=== PATIENT | female | born 2000 | race Caucasian/White ===

== ENCOUNTER 2024-07-05 16:51 | Emergency (ER) | payer OTHER, SELFPAY ==
[2024-07-05 16:56] VITALS: BP 128/82
--- NOTE | 2024-07-05 17:36 | ED.GENMED ---
History of Present Illness
General
Chief Complaint: Abdominal Symptoms
Source: patient
Exam Limitations: none
Time Seen by Provider: 07/05/24 17:26
History of Present Illness
History of Present Illness:
24-year-old female complaining of upper abdominal pain recurrent vomiting some mild diarrhea. Patient gets reflux occasionally yesterday had some reflux and some mild hung over from the night before. She read online about taking baking soda and
feels she may have taken too much. About 30 minutes after taking the baking soda and water she had worsening symptoms nausea vomiting diarrhea upper abdominal cramps. She felt somewhat better this morning however symptoms recurred after trying to
eat. No back pain no chest pain or shortness of breath
Past History
Past History
ED Past Medical History: Psychiatric
ED Past Surgical History: Appendectomy and Tonsilectomy
Social History
Tobacco: Non-smoker
Alcohol: Occasional
Drug: None
Living: with family
Employment: Employed
Phy Exam
Physical Exam
Physical Exam:
GENERAL: Alert and oriented in no apparent distress
EYE: Orbits normal.
NECK: Supple
CARDIAC: Regular rate and rhythm without any obvious murmurs.
LUNGS: Clear breath sounds,normal
ABDOMEN: Soft, bowel sounds present. No distention. Mild reproducible epigastric tenderness. No rebound or guarding no mass or hernia
NEUROLOGICAL: Alert and oriented , grossly non-focal
SKIN: Warm and dry
PSYCH: Normal and appropriate interaction.
Course
Orders/Labs/Results
Orders:
Orders
07/05/24 17:34
IV Insert/Care/Rem.- Treatment PRN
0.9% Sodium Chloride 1000 ml [Nss] 1,000 ml IV BOLUS
Mag Hydrox/Al Hydrox/Simeth [Maalox] 30 ml Phenobarb/Hyoscy/Atropine/Scop [] 10 ml PO NOW
Ondansetron Injectable [Zofran] 4 mg IV NOW STA
07/05/24 17:35
Test Result ONCE
CR Obstruct Series W/pa Chest Urgent
Comment:
Reason For Exam: Upper abdominal pain/vomiting
US Abdomen Complete/Upper Urgent
Comment:
Reason For Exam: Upper abdominal pain
07/05/24 17:58
Phenobarb/Hyoscy/Atropine/Scop [] 10 ml .ROUTE .STK-MED ONE
07/05/24 17:59
Mag Hydrox/Al Hydrox/Simeth [Maalox] 30 ml .ROUTE .STK-MED ONE
07/05/24 18:15
Ondansetron Orally Disint [Zofran Odt (Orally Disintegrating)] 4 mg .ROUTE .STK-MED ONE
07/05/24 18:20
Ondansetron Orally Disint [Zofran Odt (Orally Disintegrating)] 4 mg PO NOW STA
07/05/24 18:21
HCG, Urine Qualitative Screen Urgent
Date Specimen was Collected: 07/05/24
Time Specimen was Collected: 18:03
07/05/24 19:30
Complete Blood Count/With Diff Urgent
Comprehensive Metabolic Panel Urgent
Lipase Urgent
07/05/24 21:04
Acetaminophen 1000MG/100Ml [Ofirmev] 1,000 mg in 100 ml IV ONCE
Acetaminophen IV Indication:: ED Narcotic History-ONCE
Ondansetron Injectable [Zofran] 4 mg IV NOW STA
Abnormal Lab Results
07/05/24
19:30
RBC 4.03 L 10^6/uL
(4.20-5.40)
Hct 36.0 L %
(37.0-47.0)
MCH 32.3 H pg
(27.0-31.0)
Absolute Neuts (auto) 8.2 H 10^3/uL
(1.4-6.5)
Absolute Monos (auto) 0.7 H 10^3/uL
(0.1-0.6)
Neutrophils % 77.3 H %
(42.2-75.2)
Lymphocytes % 15.3 L %
(20.5-51.1)
Carbon Dioxide 21 L mmol/L
(22-30)
07/05/24 19:30
07/05/24 19:30
Vital Signs
Initial and Last Documented VS:
Initial Vital Signs
Temp Pulse Resp BP Pulse Ox
98.4 F 89 18 128/82 97
07/05/24 16:56 07/05/24 16:56 07/05/24 16:56 07/05/24 16:56 07/05/24 16:56
Last Documented Vital Signs
Temp Pulse Resp BP Pulse Ox
97.9 F 61 16 103/71 98
07/05/24 21:29 07/05/24 21:29 07/05/24 21:29 07/05/24 21:29 07/05/24 21:29
MDM/Problems Addressed
Differential Diagnosis Includes:
Differential would include gastritis irritation from the baking soda, biliary colic. Clinically not obstructed. Workup in progress including labs ultrasound and x-rays. Symptomatic treatment with fluids Zofran and GI cocktail.
*Radiology
Radiology exam reviewed: radiology read reviewed (Negative obstruction series. Mild hepatomegaly on ultrasound otherwise unremarkable)
*Pulse Oximetry
Patient hypoxic: no
*Critical Care Note
Total Time (30-74mins, 75-104mins- exclusive of procedures): Not Applicable
Update Note
Update Note:
Patient feeling much better. Medically stable. Discharged to follow-up
ED Attending Note
-
Portions of this chart may have been created with voice recognition software.� Occasional wrong word or��sound alike� substitutions may have occurred due to the inherent limitations of voice recognition software.
Discharge Plan
Departure
Patient Disposition: Home (Routine Discharge)
Date of Disposition: 07/05/24
Time of Disposition: 22:25
Patient with high blood pressure during this ER visit?: No
Discharge Problem:
Abdominal pain/vomiting, History of GERD
Instructions: Nausea and Vomiting, Adult (DC), Abdominal Pain
Referrals:
Trenton Ji MD [Family Provider] - Follow up in 2-3 days
Activity Restrictions/Additional Instructions:
Take a Pepcid a day for the next week
Interventions
Interventions:
*Risk Screen - Suicide Last Done: 07/05/24 17:00
*General Assessment Last Done: 07/05/24 17:00
*Neglect/Abuse Screening Last Done: 07/05/24 17:00
ED- Fall Risk Assessment Last Done: 07/05/24 18:00
*ED COVID-19 Vaccine History Last Done: 07/05/24 17:00
EH-Lfmtpn-Asmxoarcuc Assessment Last Done: 07/05/24 18:00
Discharge Date and Time
Print Language: CHINESE
[2024-07-05 18:00] VITALS: BP 91/72; BMI 28.4
[2024-07-05 18:06] VITALS: BP 91/72
[2024-07-05] MEDS: MAALOX 40 PO (18:19)
[2024-07-05] MEDS: ZOFRAN ODT (ORALLY DISINTEGRATING) 4 MG PO (18:20)
[2024-07-05 18:39] LABS: HCG, Urine Qualitative Screen Negative
[2024-07-05] MEDS: NSS 1000 IV (19:23)
[2024-07-05 19:34] LABS: % Basophils 0.3 % (0-2); % Eosinophils 0.2 % (0-6); % Immature Granulocytes 0.4 % (0-0.5); % Lymphocytes 15.3 % (20.5-51.1); % Monocytes 6.5 % (1.7-9.3); % Neutrophils 77.3 % (42.2-75.2); Absolute Lymphocytes 1.6 10^3/uL (1.2-3.4); Absolute Monocytes 0.7 10^3/uL (0.1-0.6); Absolute Neutrophils 8.2 10^3/uL (1.4-6.5); Mean Corp Hgb Conc. 36.1 g/dL (33.0-37.0); Mean Corpuscular Hgb 32.3 pg (27.0-31.0); Mean Corpuscular Volume 89.3 fL (81.0-99.0); Nucleated Red Blood Cells % 0 %; Platelet Count 303 10^3/uL (130-400); Red Blood Cell Count 4.03 10^6/uL (4.20-5.40); Red Cell Dist. Width 11.8 % (11.5-14.5); White Blood Cell Count 10.6 10^3/uL (4.8-10.8)
[2024-07-05 19:48] LABS: ALT (SGPT) 14 U/L (0-35); AST (SGOT) 23 U/L (14-36); Alkaline Phosphatase 77 U/L (38-126); Blood Urea Nitrogen 8 mg/dl (7-17); Carbon Dioxide 21 mmol/L (22-30); Chloride 107 mmol/L (98-107); Estimated Creatinine Clearance 104 ml/min; Glucose 97 mg/dl (70-99); Lipase 149 U/L (23-300); Potassium 4.1 mmol/L (3.5-5.1); Sodium 137 mmol/L (135-145); Total Bilirubin 0.6 mg/dl (0.2-1.3); Total Protein 7.4 g/dl (6.3-8.2); eGFR > 60.00
[2024-07-05 21:28] VITALS: BP 103/71
[2024-07-05] MEDS: OFIRMEV 100 IV (21:28)
[2024-07-05 21:29] VITALS: BP 103/71
[2024-07-05] MEDS: ZOFRAN 4 MG IV (21:29)
== END 2024-07-05 22:43 | disposition home or self-care (01) ==
LOC: EMR 16:51
PROVIDERS: EMERGENCY PHYSICIAN Emergency Medicine
DX: R10.10 Upper abdominal pain, unspecified (principal); K21.9 Gastro-esophageal reflux disease without esophagitis; R11.2 Nausea with vomiting, unspecified; R19.7 Diarrhea, unspecified; Z90.49 Acquired absence of other specified parts of digestive tract
CPT/HCPCS: 99284; 96374; 96375; 96376; 96361; 74022; 76700; 80053; 81025; 83690; 85025

== ENCOUNTER 2024-09-01 17:37 | Emergency (ER) | payer OTHER, SELFPAY ==
[2024-09-01 17:38] VITALS: BP 137/88
[2024-09-01 18:33] VITALS: BP 133/80
[2024-09-01 18:34] VITALS: BMI 27.3
--- NOTE | 2024-09-01 18:47 | ED.GENMED ---
History of Present Illness
General
Chief Complaint: Anxiety
Time Seen by Provider: 09/01/24 18:41
History of Present Illness
History of Present Illness:
HPI: Patient presents with severe anxiety symptoms. She reports chest pain, shortness of breath, overwhelming anxiety, she did not know what else to do. She was crying. He drank heavily last night celebrating a new job. She does drink some
alcohol on most days. She is on Prozac. There is been no changes in her medications. She does have Klonopin 0.125 mg at home but she did not take any because she feels that this 'knocks me out'.
EXAM:
GENERAL: Appears severely anxious and tearful
HEENT: Moist oral mucosa
CARDIOVASCULAR: No murmurs, borderline tachycardic heart rate, regular rhythm, No chest wall tenderness
PULMONARY: No respiratory distress, breath sounds are clear and equal
ABDOMEN: Soft with no peritoneal signs, no tenderness
NEUROLOGIC: Excellent strength all extremities, no coordination deficits, markedly tremulous
PSYCHIATRIC: Very tearful, appropriate insight and judgment
EXTREMITIES: Nontender, no edema, moves all extremities equally
SKIN: No rash, no lesions
TIME OF INITIAL ENCOUNTER: 6:50 PM
NUMBER AND COMPLEXITY OF PROBLEMS ADDRESSED AT THE ENCOUNTER
� Chronic conditions affecting care: Anxiety/depression
This is and exacerbation of a chronic problem problem
� Differential Diagnosis includes: Severe anxiety, ACS extremely unlike, benzo withdrawal, alcohol withdrawal
AMOUNT AND/OR COMPLEXITY OF DATA TO BE REVIEWED AND ANALYZED
� I performed an independent evaluation of and my interpretation is:
EKG: Sinus 92, normal axis, no acute ST abnormality
CT:
X-rays:
Laboratory Studies:
Other:
� Review of other/old records: I reviewed records, the patient was also here with a panic attack in 2022
� Clinical information was obtained by an independent historian: I spoke to boyfriend at bedside
� Prescriptions/Medications Considered but not given: I offered and considered benzos however the patient declines
� Further testing considered but not performed:
RISK OF COMPLICATIONS AND/OR MORBIDITY OR MORTALITY OF PATIENT MANAGEMENT
� Social determinants of health affecting care: Lives at home, does drink alcohol and drink alcohol heavily last night
� Discussion with other providers:
� Escalation of care including admission/observation vs risk of discharge considered: Offered and considered benzos however the patient declines. Reassurance given. On reassessment at 8:15 PM, the patient is markedly improved
spontaneously. I did strongly recommend cognitive behavioral therapy and cessation of alcohol.
Past History
Past History
ED Past Medical History: Psychiatric
ED Past Surgical History: Appendectomy and Tonsilectomy
Social History
Tobacco: Non-smoker
Alcohol: Occasional
Drug: None
Living: with family
Employment: Employed
Phy Exam
Physical Exam
Physical Exam:
See HPI
Course
Orders/Labs/Results
Orders:
Orders
09/01/24 19:00
Electrocardiogram (*1) Urgent
Reason for Study: Shortness of Breath
EKG- Treatment ONCE
Vital Signs
Initial and Last Documented VS:
Initial Vital Signs
Temp Pulse Resp BP Pulse Ox
98.1 F 117 24 137/88 99
09/01/24 17:38 09/01/24 17:38 09/01/24 17:38 09/01/24 17:38 09/01/24 17:38
Last Documented Vital Signs
Temp Pulse Resp BP Pulse Ox
98.1 F 117 24 128/79 98
09/01/24 17:38 09/01/24 17:38 09/01/24 17:38 09/01/24 19:00 09/01/24 19:00
*Critical Care Note
Total Time (30-74mins, 75-104mins- exclusive of procedures): Not Applicable
ED Attending Note
-
Portions of this chart may have been created with voice recognition software.� Occasional wrong word or��sound alike� substitutions may have occurred due to the inherent limitations of voice recognition software.
Discharge Plan
Departure
Patient Disposition: Home (Routine Discharge)
Date of Disposition: 09/01/24
Time of Disposition: 20:21
Patient with high blood pressure during this ER visit?: Yes
Discharge Problem:
Anxiety
Instructions: Anxiety, Adult (DC)
Referrals:
UNKNOWN - PT DOES,NOT KNOW [Family Provider] -
Activity Restrictions/Additional Instructions:
In the setting of rather significant anxiety, I generally recommend to not drink alcohol. Return here if worse. Consider obtaining cognitive behavioral therapy with a psychologist/therapist.
Interventions
Interventions:
*Risk Screen - Suicide Last Done: 09/01/24 17:38
*General Assessment Last Done: 09/01/24 17:38
*Neglect/Abuse Screening Last Done: 09/01/24 17:38
ED- Fall Risk Assessment Last Done: 09/01/24 18:34
*ED COVID-19 Vaccine History Last Done: 09/01/24 18:34
ED-Psychological Assessment Last Done: 09/01/24 18:34
Discharge Date and Time
Print Language: NEPALI
[2024-09-01 19:00] VITALS: BP 128/79
== END 2024-09-01 21:05 | disposition home or self-care (01) ==
LOC: EMR 17:37
PROVIDERS: EMERGENCY PHYSICIAN Emergency Medicine
DX: F41.9 Anxiety disorder, unspecified (principal)
CPT/HCPCS: 99283; 93005

== ENCOUNTER → 2025-07-07 14:30 | Outpatient (REF) | payer OTHER, SELFPAY | LOC: RAD 14:30 | PROVIDERS: ATTENDING PHYSICIAN Nurse Practitioner Family; FAMILY PHYSICIAN Family Medicine | DX: R10.2 Pelvic and perineal pain (principal) | CPT/HCPCS: 76830; 76856 ==